=== PATIENT | female | born 1965 | race African-American/Black ===

== ENCOUNTER 2016-08-15 13:51 | Emergency (ER) ==
[2016-08-15 14:30] VITALS: BP 128/75
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
== END 2016-08-15 15:45 | disposition home or self-care (01) ==
LOC: ED 13:51
DX: S13.4XXA Sprain of ligaments of cervical spine, initial encounter (principal); S80.01XA Contusion of right knee, initial encounter; M54.2 Cervicalgia; R07.89 Other chest pain; M54.9 Dorsalgia, unspecified; M79.605 Pain in left leg; M79.604 Pain in right leg; M79.1 Myalgia; M25.461 Effusion, right knee; V89.2XXA Person injured in unspecified motor-vehicle accident, traffic, initial encounter
CPT/HCPCS: 99282